=== PATIENT | male | born 1960 | race Asian ===

== ENCOUNTER 2022-01-13 14:30 | Emergency (ER) | payer OTHER ==
[2022-01-13] VITALS (16 sets, daily range): BP systolic 108–133; BP diastolic 59–79
[~2022-01-13] VITALS: Ht 162.6 cm; Wt 145.0 kg
[2022-01-13 15:02] LABS: HEMATOCRIT 35.2 % (39.0-50.0); HEMOGLOBIN 11.3 g/dl (14.0-18.0); IMMATURE GRANULOCYTES 0.2 % (0.0-5.0); MEAN CORPUSCULAR HGB 27.3 pG CALC (26.0-32.0); MEAN CORPUSCULAR HGB CONC 32.1 g/dL CAL (32.0-36.0); NEUT# 3.51 thou/uL (1.82-7.42); RED BLOOD COUNT 4.14 mill/uL (4.70-6.10); RED CELL DISTRI WIDTH 16.1 % (11.5-15.5)
[2022-01-13 15:15] LABS: ALBUMIN 3.7 g/dL (3.2-5.0); ALKALINE PHOSPHATASE 53 u/l (38-126); ANION GAP 10 (6-22 (CALC)); BILIRUBIN, TOTAL 0.8 mg/dL (0.0-1.4); BUN 16 mg/dL (8-23); BUN/CREATININE RATIO 11 (12-20 (CALC)); CARBON DIOXIDE 23 mmol/l (22-30); CHLORIDE 109 mmol/l (95-108); CREATININE 1.4 mg/dL (0.7-1.3); GFR FOR AFR.AMER. > 60 ML/MIN (>=60 (CALC)); GFR OTHER RACES 51 ML/MIN (>=60 (CALC)); SGOT/AST 31 u/l (19-48); SODIUM 138 mmol/l (137-146)
[2022-01-13 15:38] LABS: PROTHROMBIN TIME 10.9 SECONDS (9.0-12.5)
[2022-01-13] MEDS ORDERED: ELIQUIS5 MG PO (16:57)
[2022-01-13] MEDS ORDERED: EPLERENONE25 MG PO (16:58)
[2022-01-13] MEDS ORDERED: CARVEDILOL3.125 MG PO (16:58)
[2022-01-13] MEDS ORDERED: LIPITOR80 M1 PO (16:58)
[2022-01-13] MEDS ORDERED: ASPIRIN81 MG PO (17:00)
[2022-01-13] MEDS ORDERED: ENTRESTO 24-261 TAB (17:00)
[2022-01-13] MEDS ORDERED: FARXIGA10 MG (17:01)
[2022-01-13] MEDS ORDERED: DIGOXIN0.125 MG PO (17:01)
[2022-01-13] MEDS ORDERED: FAMOTIDINE20 M1 PO (17:01)
[2022-01-13] MEDS ORDERED: CORDARONE/200 MG/TAB PO (17:02)
[2022-01-13 18:46] LABS: URINE BILIRUBIN - DIPSTICK NEGATIVE (NEGATIVE); URINE BLOOD DIPSTICK NEGATIVE (NEGATIVE); URINE COLOR YELLOW; URINE GLUCOSE - DIPSTICK >=1000 mg/dL (NEGATIVE); URINE KETONE NEGATIVE (NEGATIVE); URINE LEUK ESTERASE NEGATIVE (NEGATIVE); URINE PROTEIN - DIPSTICK NEGATIVE (NEG-TRACE)
[2022-01-13 18:51] LABS: URINE NITRITE - DIPSTICK NEGATIVE (Negative)
== END 2022-01-13 19:21 | disposition short-term general hospital (02) | DRG 65 ==
LOC: ED 14:30
PROVIDERS: Family Medicine
DX: I63.9 Cerebral infarction, unspecified (principal); G81.94 Hemiplegia, unspecified affecting left nondominant side; R29.702 NIHSS score 2; I11.0 Hypertensive heart disease with heart failure; I50.9 Heart failure, unspecified; E11.9 Type 2 diabetes mellitus without complications; I48.91 Unspecified atrial fibrillation; I25.10 Atherosclerotic heart disease of native coronary artery without angina pectoris; E78.5 Hyperlipidemia, unspecified; Z95.5 Presence of coronary angioplasty implant and graft; Z95.0 Presence of cardiac pacemaker; Z95.1 Presence of aortocoronary bypass graft; Z79.01 Long term (current) use of anticoagulants; Z20.822 Contact with and (suspected) exposure to COVID-19
CPT/HCPCS: Q9967